=== PATIENT | female | born 2000 | race Two or more races ===

== ENCOUNTER 2019-05-16 18:12 | Emergency (ER) | payer OTHER ==
[~2019-05-16] VITALS: Ht 154.9 cm; Wt 54.4 kg
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
--- NOTE | 2019-05-16 19:52 | NUR ---
Patient discharged to home in stable condition. Written and verbal after care instructions given. Patient verbalizes understanding of instruction.
[2019-05-16 19:56] VITALS: BP 127/89
== END 2019-05-16 19:56 | disposition home or self-care (01) ==
LOC: ER 18:13
DX: S00.81XA Abrasion of other part of head, initial encounter (principal); S40.212A Abrasion of left shoulder, initial encounter; V49.9XXA Car occupant (driver) (passenger) injured in unspecified traffic accident, initial encounter; W22.11XA Striking against or struck by driver side automobile airbag, initial encounter; Y93.89 Activity, other specified; Y92.410 Unspecified street and highway as the place of occurrence of the external cause; Y99.8 Other external cause status
CPT/HCPCS: 70110-TC; 71045-TC